=== PATIENT | female | born 1940 | race Caucasian/White ===

== ENCOUNTER 2016-08-06 17:02 | Emergency (ER) | payer MEDICARE, BC ==
[~2016-08-06 17:02] MED LIST: ATENOLOL25 MG; ATENOLOL50 MG; ATORVASTATIN CA10 M1 PO; CALCIUM CITRATE1 TA; CALTRATE 600+D1 EAC1 PO; CEFADROXIL500 M1 PO; COUMADIN2 MG; COUMADIN4 M1 PO; COUMADIN4 MG; COUMADIN6 MG; GLUCOSAMINE 1,1 EACH PO; NORCO 5-325 TA1 EACH PO; SKELAXIN800 M3 PO; TENORMIN50 M1 PO; TYLENOL EXTRA500 M1 PO; VERAPAMIL HCL120; VERAPAMIL HCL120 MG; VERAPAMIL PO; VITAMIN D31000 UNI3 PO
[2016-08-06] MEDS ORDERED: COUMADIN4 M1 PO (19:24)
[2016-08-06] MEDS ORDERED: CALCIUM 600 +1 EA21 PO (19:26)
[2017-02-09] MEDS ORDERED: CALTRATE 600 +1 EAC2 PO (23:40)
[2017-02-09] MEDS ORDERED: TYLENOL EXTRA500 M1 PO (23:41)
[2017-02-09] MEDS ORDERED: CELEBREX200 M1 PO (23:43)
[2017-02-09] MEDS ORDERED: PROMETHAZINE HC25 M3 PO (23:44)
[2017-02-10] MEDS ORDERED: PEPCID20 M1 PO (00:54)
[2017-02-10] MEDS ORDERED: ZOFRAN ODT4 MG PO (00:54)
[2017-02-14] MEDS ORDERED: ONDANSETRON ODT4 M1 SL (10:13)
[2017-02-16] MEDS ORDERED: LEVAQUIN500 M1 PO (13:09)
[2017-02-16] MEDS ORDERED: MACROBID 100 M100 M1 PO (15:17)
== END 2016-08-06 19:50 ==
LOC: EDMED 17:02
DX: M70.41 Prepatellar bursitis, right knee (principal); I48.91 Unspecified atrial fibrillation; E78.5 Hyperlipidemia, unspecified; Z79.01 Long term (current) use of anticoagulants; Z79.899 Other long term (current) drug therapy

== ENCOUNTER 2017-02-02 09:32 | Inpatient (IN) | payer MEDICARE, BC ==
[~2017-02-02] VITALS: Ht 162.6 cm; Wt 56.0 kg
[~2017-02-02 09:32] MED LIST changes: +ATENOLOL25 M1 PO; +CALCIUM 600 +1 EA21 PO; -TENORMIN50 M1 PO
[2017-02-02 11:04] LABS: PROTHROMBIN TIME 11.9 SECONDS (9.0-13.6)
[2017-02-03 07:46] LABS: BASO % 0.1 % (0-2); HCT-HEMATOCRIT 36.6 % (34.0-49.0); HGB-HEMOGLOBIN 12.1 gm/dl (12.0-15.5); IMMATURE GRANULOCYTES ABSOLUTE 0.03 tho/cmm (0-0.03); IMMATURE GRANULOCYTES PERCENT 0.2 % (0-0.3); LYMPH ABSOLUTE COUNT 1.2 tho/cmm (0.8-4.5); MCH (MEAN CORPUSCULAR HGB) 30.9 pg (28.0-32.0); MCHC MEAN CORPUSCULAR HGB CONC 33.1 % (32.0-36.0); MCV (MEAN CELL VOLUME) 93.4 fl (82.0-96.0); MEAN PLATELET VOLUME 9.4 cmc (9.4-12.4); MONO % 5.4 % (0-12); MONOCYTE ABSOLUTE COUNT 0.7 tho/cmm (0.0-1.2); NEUTROPHIL ABSOLUTE COUNT 10.4 tho/cmm (1.6-8.0); NEUTROPHIL-AUTOMATED 10.4 tho/cmm (1.6-8.0); NEUTROPHILS % 84.3 % (40-80); PLATELET COUNT 226 tho/cmm (150-450); RED BLOOD COUNT 3.92 mil/cmm (4.00-5.20); RED CELL DISTRIBUTION WIDTH 14.4 % (12.4-16.4); WHITE BLOOD COUNT 12.4 tho/cmm (4.0-10.0)
[2017-02-04 06:07] LABS: INR 1.2 INR (0.9-1.1); PROTHROMBIN TIME 14.7 SECONDS (9.0-13.6)
[2017-02-04] MEDS ORDERED: CELEBREX200 M1 PO (11:45)
[2017-02-04] MEDS ORDERED: ROXICODONE5 M2 PO (11:45)
[2017-02-04] MEDS ORDERED: SENNA-S TABLET1 EAC3 PO (11:47)
[2017-02-04] MEDS ORDERED: MILK OF MAGNESIA PO (11:47)
[2017-02-04] MEDS ORDERED: ULTRAM50 M1 PO (11:48)
== END 2017-02-04 16:00 | disposition home health service (06) | DRG 470 ==
LOC: 5EA 09:32 → SHSC 09:32 → CARE 09:45 → ORE 11:43 → PACU 13:15 → 5EA 14:43
PROVIDERS: Hospitalist; ADMIT Orthopaedic Surgery Foot and Ankle Surgery
PROC: 0SRC0J9 Replacement of Right Knee Joint with Synthetic Substitute, Cemented, Open Approach (ICD-10-PCS; principal; 2017-02-02)
DX: M17.11 Unilateral primary osteoarthritis, right knee (principal); I12.9 Hypertensive chronic kidney disease with stage 1 through stage 4 chronic kidney disease, or unspecified chronic kidney disease; N18.3 Chronic kidney disease, stage 3 (moderate); I48.2 Chronic atrial fibrillation; G89.29 Other chronic pain; E78.5 Hyperlipidemia, unspecified; G25.2 Other specified forms of tremor; Z79.01 Long term (current) use of anticoagulants; M54.5 Low back pain; M53.3 Sacrococcygeal disorders, not elsewhere classified; Z95.0 Presence of cardiac pacemaker; Z79.899 Other long term (current) drug therapy; Z82.49 Family history of ischemic heart disease and other diseases of the circulatory system; Z83.6 Family history of other diseases of the respiratory system
CPT/HCPCS: C1713; C1776; J0171; J0690; J1885; J2270; J2405; J2795; J3010